=== PATIENT | male | born 1960 | race Two or more races ===

== ENCOUNTER 2017-11-06 22:12 | Inpatient (IN) | payer BC, OTHER, SELFPAY ==
[~2017-11-06] VITALS: Ht 160 cm; Wt 76.6 kg
[2017-11-06] MEDS ORDERED: ONDANSETRON 2MG/ML, 2ML IVPush ONE (23:00)
[2017-11-06] MEDS ORDERED: SODIUM CHLORIDE 0.9% 1,000ML IVBOLUS ONE (23:00)
[2017-11-06] MEDS ORDERED: SODIUM CHLORIDE FLUSH 10ML SYR IVF ONE (23:00)
[2017-11-06] MEDS ORDERED: ONDANSETRON 2MG/ML, 2ML ONE (23:32)
[2017-11-06] MEDS ORDERED: MORPHINE SULFATE 4 MG/ML, 1ML ONE (23:32)
[2017-11-06] MEDS: MORPHINE SULFATE 4 MG/ML, 1ML IVPush PRN (23:40)
[2017-11-06 23:45] LABS: ACETONE, SERUM Trace (10mg/dL) mg/dL (Negative)
[2017-11-06 23:46] LABS: ALANINE AMINOTRANSFERASE 394 U/L (12-78); ALBUMIN 3.8 g/dL (3.4-5.0); ANION GAP 10 mmol/L (5-15); CHLORIDE 99 mmol/L (98-107); CREATININE 1.23 mg/dL (0.7-1.3)
[2017-11-06 23:49] LABS: ALKALINE PHOSPHATASE 206 U/L (45-117); BILIRUBIN,TOTAL 3.3 mg/dL (0.2-1.0); TOTAL PROTEIN 7.6 g/dL (6.4-8.2)
[2017-11-06 23:52] LABS: MEAN CORPUSCULAR HEMOGLOBIN 29.1 pg (27.5-34.5); MEAN CORPUSCULAR HGB CONC 33.7 g/dL (33.2-36.2); MEAN CORPUSCULAR VOLUME 86.4 fL (81-97); MEAN PLATELET VOLUME 7.4 fL (7.4-10.4); PLATELET COUNT 300 x10^3/uL (130-400); RED BLOOD COUNT 5.78 x10^6/uL (4.38-5.82); RED CELL DISTRIBUTION WIDTH 13.1 % (9.4-14.8)
[2017-11-07 00:05] LABS: MICROSCOPIC NOT IND
[2017-11-07] MEDS: MORPHINE SULFATE 4 MG/ML, 1ML IVPush PRN (00:06)
[2017-11-07 00:07] LABS: CULTURE INDICATED? NO
[2017-11-07] MEDS ORDERED: MORPHINE SULFATE 4 MG/ML, 1ML ONE (00:09)
[2017-11-07 00:22] LABS: BASOPHILS # (AUTO) 0.01 x10^3/uL (0-0.1); BASOPHILS % (AUTO) 0 % (0-1); EOSINOPHILS # (AUTO) 0.04 x10^3/uL (0-0.4); EOSINOPHILS % (AUTO) 0 % (1-7); LYMPHOCYTES # (AUTO) 1.62 x10^3/uL (1-3.4); LYMPHOCYTES % (AUTO) 9 % (22-44); MD SCAN; MONOCYTES # (AUTO) 0.72 x10^3/uL (0.2-0.8); MONOCYTES % (AUTO) 4 % (2-9); NEUTROPHILS # (AUTO) 14.98 x10^3/uL (1.8-6.8); NEUTROPHILS % (AUTO) 86 % (42-75)
[2017-11-07] MEDS ORDERED: SODIUM CHLORIDE 0.9% 1,000 ML IV ONE (00:22)
[2017-11-07] MEDS ORDERED: HYDROmorphone 1 MG/ML, 1ML IVPush PRN (00:30)
[2017-11-07] MEDS ORDERED: ONDANSETRON 2MG/ML, 2ML IVPush PRN (00:30)
[2017-11-07] MEDS ORDERED: SODIUM CHLORIDE 0.9% 1,000ML IVBOLUS ONE (00:30)
[2017-11-07] MEDS ORDERED: SODIUM CHLORIDE FLUSH 10ML SYR IVF PRN (00:30)
[2017-11-07 01:43] VITALS: BP 169/94
[2017-11-07 02:33] VITALS: BP 175/92
[2017-11-07] MEDS: ONDANSETRON 2MG/ML, 2ML IVPush PRN (02:43)
[2017-11-07] MEDS: hydrALAzine 20 MG/ML, 1ML IVPush PRN (02:43)
[2017-11-07] MEDS: LACTATED RINGERS 1,000 ML IV SCH ×4 (02:44→17:17)
[2017-11-07 03:18] VITALS: BP 134/78
[2017-11-07 05:13] LABS: MEAN CORPUSCULAR HEMOGLOBIN 29.5 pg (27.5-34.5); MEAN CORPUSCULAR HGB CONC 34.2 g/dL (33.2-36.2); MEAN CORPUSCULAR VOLUME 86.5 fL (81-97); MEAN PLATELET VOLUME 7.3 fL (7.4-10.4); PLATELET COUNT 300 x10^3/uL (130-400); RED BLOOD COUNT 5.59 x10^6/uL (4.38-5.82); RED CELL DISTRIBUTION WIDTH 13.4 % (9.4-14.8)
[2017-11-07 05:24] LABS: CHLORIDE 105 mmol/L (98-107)
[2017-11-07 05:38] LABS: ALANINE AMINOTRANSFERASE 357 U/L (12-78); ALBUMIN 3.5 g/dL (3.4-5.0); ALKALINE PHOSPHATASE 190 U/L (45-117); ANION GAP 11 mmol/L (5-15); BILIRUBIN,TOTAL 3.9 mg/dL (0.2-1.0); CALCIUM 8.1 mg/dL (8.5-10.1); CREATININE 1.02 mg/dL (0.7-1.3); TOTAL PROTEIN 7.1 g/dL (6.4-8.2)
[2017-11-07] MEDS: HYDROmorphone 2 MG/ML, 1ML IVPush PRN ×5 (05:45→22:34)
[2017-11-07 06:07] LABS: BASOPHILS % (AUTO) 0 % (0-1); EOSINOPHILS % (AUTO) 0 % (1-7); LYMPHOCYTES # (AUTO) 0.48 x10^3/uL (1-3.4); LYMPHOCYTES % (AUTO) 3 % (22-44); MD SCAN; MONOCYTES # (AUTO) 0.34 x10^3/uL (0.2-0.8); MONOCYTES % (AUTO) 2 % (2-9); NEUTROPHILS # (AUTO) 14.51 x10^3/uL (1.8-6.8); NEUTROPHILS % (AUTO) 95 % (42-75)
[2017-11-07 07:51] VITALS: BP 132/86
[2017-11-07 15:12] VITALS: BP 148/89
[2017-11-07 19:49] VITALS: BP 145/87
[2017-11-08 02:00] VITALS: BP 133/77
[2017-11-08] MEDS: HYDROmorphone 2 MG/ML, 1ML IVPush PRN ×6 (02:05→21:05)
[2017-11-08] MEDS: LACTATED RINGERS 1,000 ML IV SCH ×3 (02:18→21:10)
[2017-11-08 08:30] VITALS: BP 142/78
[2017-11-08 14:34] VITALS: BP 143/88
[2017-11-08 21:11] VITALS: BP 162/98
[2017-11-09] MEDS: ONDANSETRON 2MG/ML, 2ML IVPush PRN (00:06)
[2017-11-09] MEDS: HYDROmorphone 2 MG/ML, 1ML IVPush PRN ×8 (00:06→21:53)
[2017-11-09 00:09] VITALS: BP 136/94
[2017-11-09 05:23] LABS: MEAN CORPUSCULAR HEMOGLOBIN 29.6 pg (27.5-34.5); MEAN CORPUSCULAR HGB CONC 34.1 g/dL (33.2-36.2); MEAN CORPUSCULAR VOLUME 86.8 fL (81-97); PLATELET COUNT 270 x10^3/uL (130-400); RED BLOOD COUNT 4.98 x10^6/uL (4.38-5.82); RED CELL DISTRIBUTION WIDTH 13.8 % (9.4-14.8)
[2017-11-09 05:33] LABS: CHLORIDE 106 mmol/L (98-107)
[2017-11-09 05:47] LABS: ALANINE AMINOTRANSFERASE 125 U/L (12-78); ALBUMIN 2.8 g/dL (3.4-5.0); ALKALINE PHOSPHATASE 111 U/L (45-117); ANION GAP 8 mmol/L (5-15); BILIRUBIN,TOTAL 1.8 mg/dL (0.2-1.0); CALCIUM 8.3 mg/dL (8.5-10.1); CREATININE 0.76 mg/dL (0.7-1.3); TOTAL PROTEIN 6.6 g/dL (6.4-8.2)
[2017-11-09 06:04] LABS: MD YES
[2017-11-09 06:05] LABS: BAND#(MANUAL) 1.34 x10^3/uL; BANDS%(MANUAL) 8 % (0-7); LYMPH#(MANUAL) 1.51 x10^3/uL (1-3.4); LYMPHS% (MANUAL) 9 % (22-44); MONOS#(MANUAL) 0.67 x10^3/uL (0.3-2.7); MONOS% (MANUAL) 4 % (2-9); SEG#(MANUAL) 13.27 x10^3/uL (1.8-6.8); SEGS% (MANUAL) 79 % (42-75)
[2017-11-09 06:06] LABS: <PLATELET ESTIMATE> ADEQUATE; <PLT MORPHOLOGY> NORMAL PLT MORPH; <RBC MORPHOLOGY> NORMAL
[2017-11-09 07:58] VITALS: BP 146/106
[2017-11-09] MEDS: LACTATED RINGERS 1,000 ML IV SCH ×2 (09:22→18:36)
[2017-11-09] MEDS: INSULIN LISPRO 100 UNITS/ML, PEN SQ-INSULIN SCH ×3 (12:26→22:09)
[2017-11-09 13:04] VITALS: BP 166/94
[2017-11-09 19:58] VITALS: BP 132/78
[2017-11-10] MEDS: HYDROmorphone 2 MG/ML, 1ML IVPush PRN ×8 (00:55→22:40)
[2017-11-10 03:26] VITALS: BP 138/77
[2017-11-10] MEDS: LACTATED RINGERS 1,000 ML IV SCH ×2 (04:03→13:30)
[2017-11-10 06:01] LABS: MEAN CORPUSCULAR HEMOGLOBIN 29.3 pg (27.5-34.5); MEAN CORPUSCULAR HGB CONC 33.7 g/dL (33.2-36.2); MEAN CORPUSCULAR VOLUME 86.8 fL (81-97); MEAN PLATELET VOLUME 7.1 fL (7.4-10.4); PLATELET COUNT 297 x10^3/uL (130-400); RED CELL DISTRIBUTION WIDTH 13.2 % (9.4-14.8)
[2017-11-10 06:02] LABS: ALANINE AMINOTRANSFERASE 87 U/L (12-78); ALBUMIN 2.7 g/dL (3.4-5.0); ANION GAP 5 mmol/L (5-15); CALCIUM 7.9 mg/dL (8.5-10.1); CHLORIDE 104 mmol/L (98-107)
[2017-11-10 06:05] LABS: ALKALINE PHOSPHATASE 101 U/L (45-117); BILIRUBIN,TOTAL 1.5 mg/dL (0.2-1.0); TOTAL PROTEIN 6.4 g/dL (6.4-8.2)
[2017-11-10 07:08] LABS: MD YES
[2017-11-10 07:17] LABS: EOS% (MANUAL) 1 % (1-7); LYMPH#(MANUAL) 0.93 x10^3/uL (1-3.4); LYMPHS% (MANUAL) 9 % (22-44); MONOS#(MANUAL) 0.52 x10^3/uL (0.3-2.7); MONOS% (MANUAL) 5 % (2-9); REACTIVE LYMPHS % (MANUAL) 1 % (0-0)
[2017-11-10 07:19] LABS: BAND#(MANUAL) 1.13 x10^3/uL; BANDS%(MANUAL) 11 % (0-7); SEG#(MANUAL) 7.52 x10^3/uL (1.8-6.8); SEGS% (MANUAL) 73 % (42-75)
[2017-11-10 07:21] LABS: <RBC MORPHOLOGY> NORMAL
[2017-11-10 07:22] LABS: <PLATELET ESTIMATE> ADEQUATE; <PLT MORPHOLOGY> NORMAL PLT MORPH
[2017-11-10] MEDS: INSULIN LISPRO 100 UNITS/ML, PEN SQ-INSULIN SCH ×4 (07:45→20:03)
[2017-11-10 08:00] VITALS: BP 156/79
[2017-11-10] MEDS: ONDANSETRON 2MG/ML, 2ML IVPush PRN ×4 (11:36→22:37)
[2017-11-10 13:59] VITALS: BP 143/78
[2017-11-10] MEDS ORDERED: BISACODYL 10 MG SUPP PR PRN (14:00)
[2017-11-10 19:03] VITALS: BP 165/81
[2017-11-10] MEDS ORDERED: HYDROmorphone 1 MG/ML, 1ML ONE ×2 (19:31→22:33)
[2017-11-11 00:52] VITALS: BP 147/78
[2017-11-11] MEDS ORDERED: HYDROmorphone 1 MG/ML, 1ML ONE ×4 (01:37→22:22)
[2017-11-11] MEDS: ONDANSETRON 2MG/ML, 2ML IVPush PRN ×2 (01:43→04:41)
[2017-11-11] MEDS: HYDROmorphone 2 MG/ML, 1ML IVPush PRN ×5 (01:43→22:28)
[2017-11-11] MEDS: LACTATED RINGERS 1,000 ML IV SCH ×3 (01:49→22:02)
[2017-11-11 06:06] LABS: ALBUMIN 2.3 g/dL (3.4-5.0); ANION GAP 6 mmol/L (5-15); CALCIUM 7.8 mg/dL (8.5-10.1); CHLORIDE 102 mmol/L (98-107)
[2017-11-11 06:09] LABS: ALANINE AMINOTRANSFERASE 58 U/L (12-78); ALKALINE PHOSPHATASE 84 U/L (45-117); BILIRUBIN,TOTAL 1.2 mg/dL (0.2-1.0); CREATININE 0.62 mg/dL (0.7-1.3); TOTAL PROTEIN 5.9 g/dL (6.4-8.2)
[2017-11-11 06:11] LABS: INTERNATIONAL NORMALIZED RATIO 1.1 (0.93-1.1); PROTHROMBIN TIME 11.4 Seconds (9.6-11.5)
[2017-11-11] MEDS: INSULIN LISPRO 100 UNITS/ML, PEN SQ-INSULIN SCH ×4 (07:00→22:01)
[2017-11-11 08:01] VITALS: BP 156/77
[2017-11-11] MEDS ORDERED: MIDAZOLAM 1 MG/ML, 2ML ONE (08:55)
[2017-11-11] MEDS ORDERED: FENTANYL PF 100 MCG/2ML ONE (08:55)
[2017-11-11] MEDS ORDERED: LIDOCAINE-MPF 2% ,5ML ONE (08:56)
[2017-11-11] MEDS ORDERED: PROPOFOL 10 MG/ML, 20ML ONE (08:56)
[2017-11-11] MEDS ORDERED: CEFAZOLIN 1,000 MG ONE (08:58)
[2017-11-11] MEDS ORDERED: METOPROLOL 1 MG/ML, 5ML ONE (08:58)
[2017-11-11] MEDS ORDERED: SUCCINYLCHOLINE 20 MG/ML, 10ML ONE (08:58)
[2017-11-11] MEDS ORDERED: DEXAMETHASONE 4 MG/ML, 1ML ONE ×2 (09:09)
[2017-11-11] MEDS ORDERED: KETOROLAC 30 MG/1 ML ONE (09:10)
[2017-11-11] MEDS ORDERED: ONDANSETRON 2MG/ML, 2ML ONE ×2 (09:10)
[2017-11-11] MEDS ORDERED: OMNIPAQUE 350 MG/ML, 50 ML BOTTLE ONE (09:30)
[2017-11-11] MEDS ORDERED: INDOMETHACIN 50 MG SUPP.RECT ONE (09:33)
[2017-11-11] MEDS ORDERED: hydrALAzine 20 MG/ML, 1ML IV PRN (10:00)
[2017-11-11] MEDS ORDERED: OXYcodone 5 MG/5 ML ORAL.SOL UDC PO PRN (10:00)
[2017-11-11] MEDS ORDERED: FENTANYL PF 100 MCG/2ML IV PRN (10:00)
[2017-11-11] MEDS ORDERED: ACETAMINOPHEN 325 MG TABLET PO PRN (10:00)
[2017-11-11] MEDS ORDERED: LABETALOL 5MG/ML, 20ML IV PRN (10:00)
[2017-11-11] MEDS ORDERED: INDOMETHACIN 50 MG SUPP.RECT PR ONE (10:00)
[2017-11-11] MEDS ORDERED: ONDANSETRON 2MG/ML, 2ML IVPush PRN (10:00)
[2017-11-11] MEDS ORDERED: morphine SULFATE 10 MG/ML, 1ML IV PRN (10:00)
[2017-11-11] MEDS ORDERED: LACTATED RINGERS 1,000 ML IVBOLUS ONE (10:00)
[2017-11-11] MEDS ORDERED: PROMETHAZINE 12.5 MG SUPP PR PRN (10:00)
[2017-11-11] MEDS ORDERED: MEPERIDINE/PF 25MG/0.5ML IVPush PRN (10:00)
[2017-11-11 14:18] VITALS: BP 150/82
[2017-11-11 20:27] VITALS: BP 133/85
[2017-11-12 00:36] VITALS: BP 134/84
[2017-11-12] MEDS ORDERED: HYDROmorphone 1 MG/ML, 1ML ONE ×7 (01:37→23:22)
[2017-11-12] MEDS: HYDROmorphone 2 MG/ML, 1ML IVPush PRN ×7 (01:42→23:25)
[2017-11-12 03:42] VITALS: BP 131/69
[2017-11-12] MEDS: LACTATED RINGERS 1,000 ML IV SCH ×2 (05:23→17:06)
[2017-11-12 05:39] LABS: BASOPHILS # (AUTO) 0.01 x10^3/uL (0-0.1); BASOPHILS % (AUTO) 0 % (0-1); EOSINOPHILS % (AUTO) 0 % (1-7); LYMPHOCYTES # (AUTO) 0.93 x10^3/uL (1-3.4); LYMPHOCYTES % (AUTO) 12 % (22-44); MD NO; MEAN CORPUSCULAR HEMOGLOBIN 29.8 pg (27.5-34.5); MEAN CORPUSCULAR HGB CONC 34.3 g/dL (33.2-36.2); MEAN CORPUSCULAR VOLUME 86.7 fL (81-97); MEAN PLATELET VOLUME 7.3 fL (7.4-10.4); MONOCYTES # (AUTO) 0.78 x10^3/uL (0.2-0.8); MONOCYTES % (AUTO) 10 % (2-9); NEUTROPHILS # (AUTO) 6.01 x10^3/uL (1.8-6.8); NEUTROPHILS % (AUTO) 78 % (42-75); PLATELET COUNT 272 x10^3/uL (130-400); RED BLOOD COUNT 4.27 x10^6/uL (4.38-5.82)
[2017-11-12 05:39] LABS: CHLORIDE 101 mmol/L (98-107)
[2017-11-12 06:05] LABS: ALANINE AMINOTRANSFERASE 43 U/L (12-78); ALBUMIN 2.1 g/dL (3.4-5.0); ALKALINE PHOSPHATASE 75 U/L (45-117); ANION GAP 7 mmol/L (5-15); BILIRUBIN,TOTAL 1.2 mg/dL (0.2-1.0); CALCIUM 7.7 mg/dL (8.5-10.1); CREATININE 0.72 mg/dL (0.7-1.3); TOTAL PROTEIN 5.4 g/dL (6.4-8.2)
[2017-11-12 07:55] VITALS: BP 109/72
[2017-11-12] MEDS: INSULIN LISPRO 100 UNITS/ML, PEN SQ-INSULIN SCH ×4 (08:20→20:32)
[2017-11-12] MEDS ORDERED: OXYcodone IR 5MG TABLET PO PRN (10:30)
[2017-11-12 12:49] VITALS: BP 134/74
[2017-11-12 19:15] VITALS: BP 156/79
[2017-11-13 00:39] VITALS: BP 178/88
[2017-11-13] MEDS: hydrALAzine 20 MG/ML, 1ML IVPush PRN (00:57)
[2017-11-13] MEDS: LACTATED RINGERS 1,000 ML IV SCH ×2 (00:57→13:30)
[2017-11-13] MEDS: ONDANSETRON 2MG/ML, 2ML IVPush PRN ×2 (01:04→23:10)
[2017-11-13 01:32] VITALS: BP 171/85
[2017-11-13] MEDS ORDERED: HYDROmorphone 1 MG/ML, 1ML ONE ×4 (02:04→15:43)
[2017-11-13] MEDS: HYDROmorphone 2 MG/ML, 1ML IVPush PRN ×4 (02:05→15:46)
[2017-11-13] MEDS: INSULIN LISPRO 100 UNITS/ML, PEN SQ-INSULIN SCH ×4 (08:23→21:23)
[2017-11-13 09:25] VITALS: BP 129/79
[2017-11-13] MEDS ORDERED: MIDAZOLAM 1 MG/ML, 2ML ONE (11:44)
[2017-11-13] MEDS ORDERED: FENTANYL PF 250 MCG/5ML ONE (11:44)
[2017-11-13] MEDS ORDERED: BUPIVACAINE/PF 0.5% ONE (11:58)
[2017-11-13] MEDS ORDERED: EPINEPHRINE 1 MG/ML, 1ML ONE (11:58)
[2017-11-13] MEDS ORDERED: ONDANSETRON 2MG/ML, 2ML ONE (12:12)
[2017-11-13] MEDS ORDERED: ROCURONIUM 10 MG/ML,10ML ONE (12:12)
[2017-11-13] MEDS ORDERED: NEOSTIGMINE 1 MG/ML, 10ML ONE (12:12)
[2017-11-13] MEDS ORDERED: PROPOFOL 10 MG/ML, 20ML ONE (12:12)
[2017-11-13] MEDS ORDERED: GLYCOPYRROLATE 0.2MG/1ML, 5ML ONE (12:12)
[2017-11-13] MEDS ORDERED: SUCCINYLCHOLINE 20 MG/ML, 10ML ONE (12:12)
[2017-11-13] MEDS ORDERED: CEFOTETAN 2 GM ONE (12:12)
[2017-11-13] MEDS ORDERED: BUPIVACAINE/PF-EPI 0.5% 1:200K INFIL ONE (12:33)
[2017-11-13] MEDS ORDERED: OXYcodone 5 MG/5 ML ORAL.SOL UDC PO PRN (13:00)
[2017-11-13] MEDS ORDERED: HYDROcodone/APAP 7.5-325MG/15ML UDC PO PRN (13:00)
[2017-11-13] MEDS ORDERED: PROMETHAZINE 25 MG/ML, 1ML IV PRN (13:00)
[2017-11-13] MEDS ORDERED: ACETAMINOPHEN 325 MG TABLET PO PRN (13:00)
[2017-11-13] MEDS ORDERED: MEPERIDINE/PF 25MG/0.5ML IVPush PRN (13:00)
[2017-11-13] MEDS ORDERED: morphine SULFATE 10 MG/ML, 1ML IV PRN (13:00)
[2017-11-13] MEDS ORDERED: DIAZEPAM 5 MG/ML, 2ML IVPush PRN (13:00)
[2017-11-13] MEDS ORDERED: ONDANSETRON 2MG/ML, 2ML IVPush PRN (13:00)
[2017-11-13] MEDS ORDERED: PROMETHAZINE 12.5 MG SUPP PR PRN (13:00)
[2017-11-13] MEDS ORDERED: LABETALOL 5MG/ML, 20ML IV PRN (13:00)
[2017-11-13] MEDS ORDERED: MIDAZOLAM 1 MG/ML, 2ML IV PRN (13:00)
[2017-11-13] MEDS ORDERED: EPHEDRINE 50 MG/ML, 1ML IVPush PRN (13:00)
[2017-11-13] MEDS ORDERED: ALBUTEROL SULFATE 2.5 MG/3 ML NPPB PRN (13:00)
[2017-11-13] MEDS ORDERED: METOPROLOL 1 MG/ML, 5ML IV PRN (13:00)
[2017-11-13] MEDS ORDERED: hydrALAzine 20 MG/ML, 1ML IV PRN (13:00)
[2017-11-13] MEDS ORDERED: ACETAMINOPHEN 650 MG/20.3 ML UDC ONE (13:22)
[2017-11-13] MEDS ORDERED: FENTANYL PF 100 MCG/2ML ONE (13:22)
[2017-11-13] MEDS ORDERED: OXYcodone 5 MG/5 ML ORAL.SOL UDC ONE (13:22)
[2017-11-13] MEDS: FENTANYL PF 100 MCG/2ML IV PRN ×2 (13:27→13:48)
[2017-11-13] MEDS ORDERED: morphine SULFATE 10 MG/ML, 1ML ONE (13:57)
[2017-11-13 14:40] VITALS: BP 141/90
[2017-11-13] MEDS: HYDROcodone/APAP 5/325 TABLET PO PRN ×2 (19:41→23:52)
[2017-11-13 20:58] VITALS: BP 162/108
[2017-11-14 00:07] VITALS: BP 132/80
[2017-11-14 03:52] VITALS: BP 110/82
[2017-11-14] MEDS: HYDROcodone/APAP 5/325 TABLET PO PRN ×4 (05:14→23:52)
[2017-11-14 06:38] VITALS: BP 144/91
[2017-11-14] MEDS: INSULIN LISPRO 100 UNITS/ML, PEN SQ-INSULIN SCH ×4 (09:12→22:50)
[2017-11-14 12:39] VITALS: BP 127/83
[2017-11-14 19:38] VITALS: BP 118/75
[2017-11-15 01:20] VITALS: BP 137/77
[2017-11-15 05:37] LABS: MEAN CORPUSCULAR HEMOGLOBIN 29.1 pg (27.5-34.5); MEAN CORPUSCULAR HGB CONC 33.8 g/dL (33.2-36.2); MEAN PLATELET VOLUME 7.1 fL (7.4-10.4); PLATELET COUNT 337 x10^3/uL (130-400); RED BLOOD COUNT 4.93 x10^6/uL (4.38-5.82); RED CELL DISTRIBUTION WIDTH 13.2 % (9.4-14.8)
[2017-11-15] MEDS: HYDROcodone/APAP 5/325 TABLET PO PRN ×2 (05:41→09:37)
[2017-11-15 05:44] LABS: ALBUMIN 2.1 g/dL (3.4-5.0); ANION GAP 8 mmol/L (5-15); CALCIUM 7.7 mg/dL (8.5-10.1); CHLORIDE 98 mmol/L (98-107)
[2017-11-15 05:47] LABS: ALANINE AMINOTRANSFERASE 50 U/L (12-78); ALKALINE PHOSPHATASE 95 U/L (45-117); BILIRUBIN,TOTAL 1.5 mg/dL (0.2-1.0); CREATININE 0.79 mg/dL (0.7-1.3)
[2017-11-15 06:02] LABS: MD YES
[2017-11-15 06:03] LABS: BAND#(MANUAL) 1.33 x10^3/uL; BANDS%(MANUAL) 10 % (0-7); LYMPH#(MANUAL) 2.39 x10^3/uL (1-3.4); LYMPHS% (MANUAL) 18 % (22-44); MONOS% (MANUAL) 9 % (2-9); SEG#(MANUAL) 8.38 x10^3/uL (1.8-6.8); SEGS% (MANUAL) 63 % (42-75)
[2017-11-15 06:04] LABS: <PLATELET ESTIMATE> ADEQUATE; <PLT MORPHOLOGY> NORMAL PLT MORPH; <RBC MORPHOLOGY> NORMAL
[2017-11-15 06:35] VITALS: BP 129/80
[2017-11-15] MEDS: INSULIN LISPRO 100 UNITS/ML, PEN SQ-INSULIN SCH (08:29)
[2017-11-15] MEDS ORDERED: KETO10TA PO (09:31)
[2017-11-15] MEDS ORDERED: ONDA4TAB13 SL (09:31)
[2017-11-15] MEDS ORDERED: POLY17PO5 PO (09:32)
== END 2017-11-15 11:23 | disposition home or self-care (01) | DRG 417 ==
LOC: ED 23:10 → EDIP 11-07 00:41 → 4WST 11-07 01:43 → 4EST 11-07 10:43 → 4NOR 11-11 11:21
PROVIDERS: ADMIT Hospitalist; ATTEND Hospitalist
PROC: 0FC98ZZ Extirpation of Matter from Common Bile Duct, Via Natural or Artificial Opening Endoscopic (ICD-10-PCS; 2017-11-11)
PROC: 0F798ZZ Dilation of Common Bile Duct, Via Natural or Artificial Opening Endoscopic (ICD-10-PCS; 2017-11-11)
PROC: 0HQ7XZZ Repair Abdomen Skin, External Approach (ICD-10-PCS; 2017-11-13)
PROC: 0FT44ZZ Resection of Gallbladder, Percutaneous Endoscopic Approach (ICD-10-PCS; principal; 2017-11-13 11:45)
DX: K80.21 Calculus of gallbladder without cholecystitis with obstruction (principal); K85.10 Biliary acute pancreatitis without necrosis or infection; K80.51 Calculus of bile duct without cholangitis or cholecystitis with obstruction; E11.65 Type 2 diabetes mellitus with hyperglycemia; E78.5 Hyperlipidemia, unspecified; E86.9 Volume depletion, unspecified; R14.0 Abdominal distension (gaseous); R74.8 Abnormal levels of other serum enzymes; R79.89 Other specified abnormal findings of blood chemistry; Z79.4 Long term (current) use of insulin; Z80.0 Family history of malignant neoplasm of digestive organs; Z83.3 Family history of diabetes mellitus
CPT/HCPCS: 36415; 74181; 74328; 76700; 80053; 81003; 82010; 82800; 82962; 83690; 83735; 84100; 85025; 85610; 88304; 96361; 96374; 96375; J0171; J0690; J1100; J1170; J1885; J2250; J2405; J2704; J2710; J3010; J3490; Q9967; J0330; J0360; J1815; J2270; J7030; J7120; S0074

== ENCOUNTER 2018-02-01 20:07 | Inpatient (IN) | payer OTHER ==
[~2018-02-01] VITALS: Ht 162.6 cm; Wt 61.3 kg
[~2018-02-01 20:07] MED LIST: KETO10TA PO; ONDA4TAB13 SL; POLY17PO5 PO
[2018-02-01] MEDS ORDERED: SODIUM CHLORIDE FLUSH 10ML SYR IVF ONE (21:00)
[2018-02-01] MEDS ORDERED: MORPHINE SULFATE 4 MG/ML, 1ML IVPush PRN (21:00)
[2018-02-01] MEDS ORDERED: ONDANSETRON ODT 4 MG PO ONE (21:00)
[2018-02-01] MEDS ORDERED: ONDANSETRON ODT 4 MG ONE (21:07)
[2018-02-01] MEDS ORDERED: MORPHINE SULFATE 4 MG/ML, 1ML ONE (21:07)
[2018-02-01 21:12] LABS: BASOPHILS # (AUTO) 0.02 x10^3/uL (0-0.1); BASOPHILS % (AUTO) 0 % (0-1); EOSINOPHILS # (AUTO) 0.06 x10^3/uL (0-0.4); EOSINOPHILS % (AUTO) 1 % (1-7); LYMPHOCYTES # (AUTO) 1.56 x10^3/uL (1-3.4); LYMPHOCYTES % (AUTO) 24 % (22-44); MD NO; MEAN CORPUSCULAR HEMOGLOBIN 27.5 pg (27.5-34.5); MEAN CORPUSCULAR HGB CONC 33.6 g/dL (33.2-36.2); MEAN PLATELET VOLUME 6.2 fL (7.4-10.4); MONOCYTES # (AUTO) 0.84 x10^3/uL (0.2-0.8); MONOCYTES % (AUTO) 13 % (2-9); NEUTROPHILS # (AUTO) 3.93 x10^3/uL (1.8-6.8); NEUTROPHILS % (AUTO) 61 % (42-75); PLATELET COUNT 368 x10^3/uL (130-400); RED BLOOD COUNT 4.39 x10^6/uL (4.38-5.82)
[2018-02-01 21:18] LABS: ALANINE AMINOTRANSFERASE 17 U/L (12-78); ALBUMIN 2.4 g/dL (3.4-5.0); ANION GAP 9 mmol/L (5-15); CALCIUM 8.6 mg/dL (8.5-10.1); CHLORIDE 101 mmol/L (98-107); CREATININE 0.95 mg/dL (0.7-1.3)
[2018-02-01 21:20] LABS: ALKALINE PHOSPHATASE 61 U/L (45-117); BILIRUBIN,TOTAL 0.7 mg/dL (0.2-1.0); TOTAL PROTEIN 7.7 g/dL (6.4-8.2)
[2018-02-01 21:51] LABS: MICROSCOPIC NOT IND
[2018-02-01 21:54] LABS: CULTURE INDICATED? NO
[2018-02-01] MEDS ORDERED: OMNIPAQUE 350 MG/ML, 100ML BOTTLE ONE (22:23)
[2018-02-01] MEDS ORDERED: METF500T4 PO (23:19)
[2018-02-01] MEDS ORDERED: MEROPENEM 1 GM in SODIUM CHLORIDE 0.9% 100 ML IV ONE (23:30)
[2018-02-01] MEDS: MEROPENEM 1 GM in SODIUM CHLORIDE 0.9% 100 ML IV SCH (23:56)
[2018-02-02] MEDS ORDERED: GLUCAGON 1 MG IM PRN
[2018-02-02] MEDS ORDERED: DEXTROSE 50%, 50ML SYRINGE IVPush PRN
[2018-02-02] MEDS ORDERED: ONDANSETRON 2MG/ML, 2ML IVPush PRN
[2018-02-02] MEDS ORDERED: hydrALAzine 20 MG/ML, 1ML IVPush PRN
[2018-02-02] MEDS ORDERED: morphine SULFATE 10 MG/ML, 1ML IVPush PRN
[2018-02-02] MEDS ORDERED: DEXTROSE 4 GM TAB.CHEW PO PRN
[2018-02-02 00:12] LABS: HCT (SEDRATE) 35.4 % (39.2-51.8)
[2018-02-02 00:31] LABS: C-REACTIVE PROTEIN, QUANT 5.1 mg/dL (0.02-0.49)
[2018-02-02 00:37] VITALS: BP 92/65
[2018-02-02 00:45] VITALS: BP 92/65
[2018-02-02] MEDS: D5%-0.45% NACL 1,000 ML IV SCH ×5 (00:56→22:02)
[2018-02-02] MEDS ORDERED: ATOR40TA PO (01:11)
[2018-02-02] MEDS ORDERED: GLIP-142 PO (01:11)
[2018-02-02] MEDS ORDERED: LISI-424 PO (01:11)
[2018-02-02 05:02] LABS: BASOPHILS # (AUTO) 0.04 x10^3/uL (0-0.1); BASOPHILS % (AUTO) 1 % (0-1); EOSINOPHILS # (AUTO) 0.09 x10^3/uL (0-0.4); EOSINOPHILS % (AUTO) 1 % (1-7); LYMPHOCYTES # (AUTO) 1.35 x10^3/uL (1-3.4); LYMPHOCYTES % (AUTO) 20 % (22-44); MD NO; MEAN CORPUSCULAR HEMOGLOBIN 27.6 pg (27.5-34.5); MEAN CORPUSCULAR HGB CONC 33.1 g/dL (33.2-36.2); MEAN CORPUSCULAR VOLUME 83.5 fL (81-97); MEAN PLATELET VOLUME 6.1 fL (7.4-10.4); MONOCYTES # (AUTO) 0.93 x10^3/uL (0.2-0.8); MONOCYTES % (AUTO) 14 % (2-9); NEUTROPHILS # (AUTO) 4.24 x10^3/uL (1.8-6.8); NEUTROPHILS % (AUTO) 64 % (42-75); PLATELET COUNT 306 x10^3/uL (130-400); RED BLOOD COUNT 4.13 x10^6/uL (4.38-5.82); RED CELL DISTRIBUTION WIDTH 14.1 % (9.4-14.8)
[2018-02-02 05:14] LABS: CHLORIDE 102 mmol/L (98-107)
[2018-02-02 05:22] LABS: ALANINE AMINOTRANSFERASE 15 U/L (12-78); ALKALINE PHOSPHATASE 61 U/L (45-117); ANION GAP 6 mmol/L (5-15); BILIRUBIN,TOTAL 0.6 mg/dL (0.2-1.0); CALCIUM 7.7 mg/dL (8.5-10.1); CREATININE 0.89 mg/dL (0.7-1.3); TOTAL PROTEIN 6.7 g/dL (6.4-8.2)
[2018-02-02] MEDS: INSULIN LISPRO 100 UNITS/ML, PEN SQ-INSULIN SCH ×4 (07:00→20:27)
[2018-02-02 07:48] VITALS: BP 98/70
[2018-02-02] MEDS: MEROPENEM 1 GM in SODIUM CHLORIDE 0.9% 100 ML IV SCH ×2 (08:08→17:12)
[2018-02-02] MEDS: SODIUM CHLORIDE FLUSH 10ML SYR IVF SCH ×2 (08:08→20:27)
[2018-02-02 13:19] VITALS: BP 96/61
[2018-02-02 19:42] VITALS: BP 96/62
[2018-02-03] MEDS: MEROPENEM 1 GM in SODIUM CHLORIDE 0.9% 100 ML IV SCH ×3 (00:17→17:09)
[2018-02-03 00:27] VITALS: BP 99/65
[2018-02-03] MEDS: D5%-0.45% NACL 1,000 ML IV SCH ×4 (02:58→21:53)
[2018-02-03 05:40] LABS: ALANINE AMINOTRANSFERASE 14 U/L (12-78); ALBUMIN 1.8 g/dL (3.4-5.0); ANION GAP 6 mmol/L (5-15); CALCIUM 7.9 mg/dL (8.5-10.1); CHLORIDE 107 mmol/L (98-107); CREATININE 0.89 mg/dL (0.7-1.3)
[2018-02-03 05:42] LABS: ALKALINE PHOSPHATASE 47 U/L (45-117); BILIRUBIN,TOTAL 0.7 mg/dL (0.2-1.0); TOTAL PROTEIN 6.1 g/dL (6.4-8.2)
[2018-02-03 07:24] VITALS: BP 96/54
[2018-02-03] MEDS: SODIUM CHLORIDE FLUSH 10ML SYR IVF SCH ×2 (08:07→21:54)
[2018-02-03] MEDS: INSULIN LISPRO 100 UNITS/ML, PEN SQ-INSULIN SCH ×4 (08:18→21:54)
[2018-02-03 14:29] VITALS: BP 101/66
[2018-02-03] MEDS ORDERED: LIDOCAINE GEL 2%, 5ML ONE (16:22)
[2018-02-03 21:11] VITALS: BP 114/62
[2018-02-04] MEDS: MEROPENEM 1 GM in SODIUM CHLORIDE 0.9% 100 ML IV SCH ×3 (00:43→17:10)
[2018-02-04 01:29] VITALS: BP 101/63
[2018-02-04] MEDS: D5%-0.45% NACL 1,000 ML IV SCH ×4 (03:02→23:01)
[2018-02-04 07:39] VITALS: BP 101/67
[2018-02-04] MEDS: INSULIN LISPRO 100 UNITS/ML, PEN SQ-INSULIN SCH ×4 (08:52→21:57)
[2018-02-04] MEDS: SODIUM CHLORIDE FLUSH 10ML SYR IVF SCH ×2 (08:53→21:00)
[2018-02-04 09:37] LABS: TRIGLYCERIDES 87 mg/dL (50-200); VLDL CHOLESTEROL 17 mg/dL (0-25)
[2018-02-04 09:39] LABS: HDL CHOLESTEROL (DIRECT) 17 mg/dL (40-60)
[2018-02-04 09:41] LABS: CHOL/HDL RATIO 2.9; CHOLESTEROL, TOTAL < 50 mg/dL (140-239); LDL CHOLESTEROL,CALCULATED 16 mg/dL (54-169); LDL/HDL RATIO 0.9 (0.5-3.0)
[2018-02-04 09:43] LABS: HDL CHOL % < 1 % (26-37)
[2018-02-04 14:00] VITALS: BP 101/64
[2018-02-04 19:25] VITALS: BP 114/73
[2018-02-05 00:40] VITALS: BP 123/73
[2018-02-05] MEDS: MEROPENEM 1 GM in SODIUM CHLORIDE 0.9% 100 ML IV SCH ×3 (01:10→17:12)
[2018-02-05] MEDS: D5%-0.45% NACL 1,000 ML IV SCH ×3 (06:20→21:41)
[2018-02-05 07:26] VITALS: BP 113/75
[2018-02-05] MEDS ORDERED: ENOXAPARIN 40 MG/0.4 ML SQ SCH (08:30)
[2018-02-05] MEDS: SODIUM CHLORIDE FLUSH 10ML SYR IVF SCH ×2 (09:00→21:00)
[2018-02-05] MEDS: INSULIN LISPRO 100 UNITS/ML, PEN SQ-INSULIN SCH ×4 (09:03→21:40)
[2018-02-05 13:53] VITALS: BP 111/73
[2018-02-05 19:13] VITALS: BP 124/76
[2018-02-06 01:19] VITALS: BP 113/71
[2018-02-06] MEDS: MEROPENEM 1 GM in SODIUM CHLORIDE 0.9% 100 ML IV SCH ×3 (01:30→16:58)
[2018-02-06] MEDS: D5%-0.45% NACL 1,000 ML IV SCH ×2 (01:45→07:15)
[2018-02-06 07:21] VITALS: BP 113/72
[2018-02-06] MEDS: INSULIN LISPRO 100 UNITS/ML, PEN SQ-INSULIN SCH ×4 (08:18→21:38)
[2018-02-06] MEDS: SODIUM CHLORIDE FLUSH 10ML SYR IVF SCH ×2 (09:46→21:00)
[2018-02-06 13:19] VITALS: BP 98/65
[2018-02-06 20:29] VITALS: BP 118/74
[2018-02-07] MEDS: MEROPENEM 1 GM in SODIUM CHLORIDE 0.9% 100 ML IV SCH ×2 (01:07→10:25)
[2018-02-07 01:44] VITALS: BP 103/65
[2018-02-07] MEDS: INSULIN LISPRO 100 UNITS/ML, PEN SQ-INSULIN SCH ×4 (07:58→20:34)
[2018-02-07 08:05] VITALS: BP 109/72
[2018-02-07] MEDS: SODIUM CHLORIDE FLUSH 10ML SYR IVF SCH ×2 (09:00→20:28)
[2018-02-07 13:29] VITALS: BP 106/71
[2018-02-07] MEDS: CEFDINIR 300 MG CAPSULE PO SCH (16:57)
[2018-02-07 18:38] VITALS: BP 106/67
[2018-02-08 01:11] VITALS: BP 98/60
[2018-02-08] MEDS: CEFDINIR 300 MG CAPSULE PO SCH (04:10)
[2018-02-08] MEDS: INSULIN LISPRO 100 UNITS/ML, PEN SQ-INSULIN SCH (07:00)
[2018-02-08 07:32] VITALS: BP 99/65
[2018-02-08] MEDS ORDERED: CEFD300C37 PO (07:57)
[2018-02-08] MEDS ORDERED: POLYETHYLENE GLYCOL 17 GM PACKET NG ONE (08:30)
[2018-02-08] MEDS: SODIUM CHLORIDE FLUSH 10ML SYR IVF SCH (09:00)
[2018-02-08] MEDS ORDERED: DOCUSATE 100 MG CAPSULE PO SCH (09:00)
== END 2018-02-08 10:30 | disposition home or self-care (01) | DRG 439 ==
LOC: ED 22:13 → EDIP 23:16 → 3NE 02-02 00:10 → DCLOUNGE 02-08 10:11
PROVIDERS: ADMIT Hospitalist; ATTEND Hospitalist
DX: K85.90 Acute pancreatitis without necrosis or infection, unspecified (principal); E44.0 Moderate protein-calorie malnutrition; E11.649 Type 2 diabetes mellitus with hypoglycemia without coma; E87.1 Hypo-osmolality and hyponatremia; M54.5 Low back pain; E78.5 Hyperlipidemia, unspecified; R79.89 Other specified abnormal findings of blood chemistry; D64.9 Anemia, unspecified; Z68.23 Body mass index [BMI] 23.0-23.9, adult; Z79.84 Long term (current) use of oral hypoglycemic drugs; Z83.3 Family history of diabetes mellitus; Z90.49 Acquired absence of other specified parts of digestive tract
CPT/HCPCS: 36415; 72072; 74018; 74177; 74181; 76000; 80053; 80061; 81003; 82962; 83690; 84478; 85025; 85651; 86140; 87040; 93005; 96374; J2185; Q0162; Q9967; J1815

== ENCOUNTER 2018-05-16 09:20 | Inpatient (IN) | payer OTHER ==
[~2018-05-16] VITALS: Ht 160 cm; Wt 62.1 kg
[~2018-05-16 09:20] MED LIST changes: +ATOR40TA PO; +CEFD300C37 PO; +GLIP-142 PO; +LISI-424 PO; +METF500T17 PO
[2018-05-16] MEDS ORDERED: SODIUM CHLORIDE 0.9% 1,000ML IVBOLUS ONE (10:00)
[2018-05-16] MEDS ORDERED: SODIUM CHLORIDE FLUSH 10ML SYR IVF ONE (10:00)
[2018-05-16] MEDS ORDERED: IBUPROFEN 200 MG TABLET PO ONE (10:00)
[2018-05-16 10:28] LABS: MEAN CORPUSCULAR HEMOGLOBIN 28.5 pg (27.5-34.5); MEAN CORPUSCULAR HGB CONC 33.8 g/dL (33.2-36.2); MEAN CORPUSCULAR VOLUME 84.5 fL (81-97); MEAN PLATELET VOLUME 6.6 fL (7.4-10.4); PLATELET COUNT 236 x10^3/uL (130-400); RED BLOOD COUNT 5.21 x10^6/uL (4.38-5.82); RED CELL DISTRIBUTION WIDTH 14.1 % (9.4-14.8)
[2018-05-16] MEDS ORDERED: IBUPROFEN 200 MG TABLET ONE (10:31)
[2018-05-16 10:35] LABS: ANION GAP 7 mmol/L (5-15); CALCIUM 8.3 mg/dL (8.5-10.1); CHLORIDE 102 mmol/L (98-107)
[2018-05-16 10:42] LABS: MD YES
[2018-05-16 10:43] LABS: BAND#(MANUAL) 1.98 x10^3/uL; BANDS%(MANUAL) 13 % (0-7); LYMPH#(MANUAL) 1.37 x10^3/uL (1-3.4); LYMPHS% (MANUAL) 9 % (22-44); MONOS#(MANUAL) 0.46 x10^3/uL (0.3-2.7); MONOS% (MANUAL) 3 % (2-9); SEGS% (MANUAL) 75 % (42-75)
[2018-05-16 10:44] LABS: <RBC MORPHOLOGY> NORMAL
[2018-05-16 10:45] LABS: <PLATELET ESTIMATE> ADEQUATE; <PLT MORPHOLOGY> NORMAL PLT MORPH; TOXIC GRAN 1+
[2018-05-16] MEDS ORDERED: CEFTRIAXONE 1,000 MG in SODIUM CHLORIDE 0.9% 50 ML IVPB ONE (11:00)
[2018-05-16] MEDS ORDERED: CEFTRIAXONE PMX 1GM/50ML 50 ML ONE (11:19)
[2018-05-16 11:29] LABS: MICROSCOPIC INDICATED
[2018-05-16 12:06] LABS: CULTURE INDICATED? NO
[2018-05-16] MEDS ORDERED: OMNIPAQUE 350 MG/ML, 100ML BOTTLE ONE (13:01)
[2018-05-16 13:28] LABS: BILIRUBIN, DIRECT 0.2 mg/dL (0.1-0.2)
[2018-05-16 13:30] LABS: BILIRUBIN,INDIRECT 0.3 mg/dL (0.0-2.0); BILIRUBIN,TOTAL 0.5 mg/dL (0.2-1.0); TOTAL PROTEIN 7.8 g/dL (6.4-8.2)
[2018-05-16] MEDS ORDERED: METRONIDAZOLE PMX 500MG/100ML 100 ML IV ONE (13:30)
[2018-05-16] MEDS ORDERED: METRONIDAZOLE PMX 500MG/100ML 100 ML ONE (13:51)
[2018-05-16] MEDS ORDERED: SODIUM CHLORIDE FLUSH 10ML SYR IVF PRN (15:00)
[2018-05-16] MEDS ORDERED: POLYETHYLENE GLYCOL 17 GM PACKET PO PRN (16:00)
[2018-05-16] MEDS ORDERED: DEXTROSE 4 GM TAB.CHEW PO PRN (16:00)
[2018-05-16] MEDS ORDERED: DOCUSATE 100 MG CAPSULE PO PRN (16:00)
[2018-05-16] MEDS ORDERED: BISACODYL 10 MG SUPP PR PRN (16:00)
[2018-05-16] MEDS ORDERED: GLUCAGON 1 MG IM PRN (16:00)
[2018-05-16] MEDS ORDERED: ACETAMINOPHEN 325 MG TABLET PO PRN (16:00)
[2018-05-16] MEDS ORDERED: DEXTROSE 50%, 50ML SYRINGE IVPush PRN (16:00)
[2018-05-16] MEDS ORDERED: hydrALAzine 20 MG/ML, 1ML IVPush PRN (16:00)
[2018-05-16] MEDS: INSULIN LISPRO 100 UNITS/ML, PEN SQ-INSULIN SCH ×2 (16:00→20:18)
[2018-05-16 16:15] VITALS: BP 101/67
[2018-05-16 16:18] LABS: INTERNATIONAL NORMALIZED RATIO 1.05 (0.93-1.1); PROTHROMBIN TIME 10.8 Seconds (9.6-11.5)
[2018-05-16 16:33] LABS: HEMOGLOBIN A1C 7.3 % (4.2-6.3)
[2018-05-16] MEDS: morphine SULFATE 10 MG/ML, 1ML IVPush PRN (16:57)
[2018-05-16] MEDS: D5%-0.45% NACL 1,000 ML IV SCH (16:58)
[2018-05-16] MEDS ORDERED: CEFTRIAXONE 2 GM in SODIUM CHLORIDE 0.9% 50 ML IV SCH (17:00)
[2018-05-16 19:03] VITALS: BP 107/68
[2018-05-16] MEDS: METRONIDAZOLE PMX 500MG/100ML 100 ML IV SCH (20:10)
[2018-05-16] MEDS: PANTOPRAZOLE 40 MG IV IVPush SCH (20:40)
[2018-05-16] MEDS: SODIUM CHLORIDE FLUSH 10ML SYR IVF SCH (20:41)
[2018-05-17 01:32] VITALS: BP 107/67
[2018-05-17] MEDS: D5%-0.45% NACL 1,000 ML IV SCH ×2 (02:08→14:45)
[2018-05-17] MEDS: METRONIDAZOLE PMX 500MG/100ML 100 ML IV SCH ×4 (02:09→20:22)
[2018-05-17] MEDS: morphine SULFATE 10 MG/ML, 1ML IVPush PRN (02:18)
[2018-05-17 05:33] LABS: MEAN CORPUSCULAR HEMOGLOBIN 28.6 pg (27.5-34.5); MEAN CORPUSCULAR HGB CONC 34.3 g/dL (33.2-36.2); MEAN CORPUSCULAR VOLUME 83.4 fL (81-97); MEAN PLATELET VOLUME 6.5 fL (7.4-10.4); PLATELET COUNT 193 x10^3/uL (130-400); RED BLOOD COUNT 4.69 x10^6/uL (4.38-5.82); RED CELL DISTRIBUTION WIDTH 14.2 % (9.4-14.8)
[2018-05-17 05:50] LABS: ALBUMIN 2.4 g/dL (3.4-5.0); ANION GAP 6 mmol/L (5-15); CHLORIDE 103 mmol/L (98-107)
[2018-05-17 05:54] LABS: ALANINE AMINOTRANSFERASE 25 U/L (12-78); ALKALINE PHOSPHATASE 65 U/L (45-117); BILIRUBIN,TOTAL 0.5 mg/dL (0.2-1.0); CALCIUM 7.6 mg/dL (8.5-10.1); CREATININE 0.91 mg/dL (0.7-1.3); TOTAL PROTEIN 6.4 g/dL (6.4-8.2)
[2018-05-17 06:06] LABS: MD YES
[2018-05-17 06:10] LABS: BAND#(MANUAL) 0.89 x10^3/uL; BANDS%(MANUAL) 9 % (0-7); LYMPH#(MANUAL) 1.98 x10^3/uL (1-3.4); LYMPHS% (MANUAL) 20 % (22-44); MONOS% (MANUAL) 5 % (2-9); SEG#(MANUAL) 6.53 x10^3/uL (1.8-6.8); SEGS% (MANUAL) 66 % (42-75)
[2018-05-17 06:11] LABS: <PLATELET ESTIMATE> ADEQUATE; <PLT MORPHOLOGY> NORMAL PLT MORPH; <RBC MORPHOLOGY> NORMAL
[2018-05-17] MEDS ORDERED: VANCOMYCIN PER PHARMACY MC PRN (07:00)
[2018-05-17] MEDS: INSULIN LISPRO 100 UNITS/ML, PEN SQ-INSULIN SCH ×4 (07:00→20:15)
[2018-05-17] MEDS ORDERED: PHARMACY MAY ADJ FOR RENAL FX MC PRN (07:00)
[2018-05-17] MEDS: SODIUM CHLORIDE FLUSH 10ML SYR IVF SCH ×2 (07:38→20:19)
[2018-05-17 07:52] VITALS: BP 93/65
[2018-05-17] MEDS ORDERED: PHARMACOKINETIC MONITORING MC PRN (08:00)
[2018-05-17] MEDS: PANTOPRAZOLE 40 MG IV IVPush SCH ×2 (09:05→20:19)
[2018-05-17] MEDS ORDERED: GADOBUTROL 7.5 MMOL/7.5 ML PFS ONE (09:33)
[2018-05-17] MEDS: VANCOMYCIN 1,200 MG in SODIUM CHLORIDE 0.9% 250 ML IV SCH ×2 (10:05→21:52)
[2018-05-17 13:36] VITALS: BP 94/61
[2018-05-17 20:17] VITALS: BP 100/66
[2018-05-18 01:51] VITALS: BP 95/62
[2018-05-18] MEDS: D5%-0.45% NACL 1,000 ML IV SCH ×3 (02:15→23:46)
[2018-05-18] MEDS: METRONIDAZOLE PMX 500MG/100ML 100 ML IV SCH ×3 (02:15→13:38)
[2018-05-18 05:59] LABS: ALBUMIN 2.3 g/dL (3.4-5.0); ANION GAP 8 mmol/L (5-15); CALCIUM 7.8 mg/dL (8.5-10.1); CHLORIDE 106 mmol/L (98-107)
[2018-05-18 06:01] LABS: CREATININE 0.98 mg/dL (0.7-1.3)
[2018-05-18] MEDS: morphine SULFATE 10 MG/ML, 1ML IVPush PRN (06:44)
[2018-05-18 07:58] VITALS: BP 89/65
[2018-05-18] MEDS ORDERED: SODIUM CHLORIDE 0.9%, 500ML IVBOLUS ONE (08:30)
[2018-05-18] MEDS: SODIUM CHLORIDE FLUSH 10ML SYR IVF SCH ×2 (08:54→20:41)
[2018-05-18] MEDS: INSULIN LISPRO 100 UNITS/ML, PEN SQ-INSULIN SCH ×4 (08:57→20:42)
[2018-05-18] MEDS: PANTOPRAZOLE 40 MG IV IVPush SCH ×2 (09:05→20:41)
[2018-05-18 09:43] VITALS: BP 98/65
[2018-05-18] MEDS: VANCOMYCIN 1,200 MG in SODIUM CHLORIDE 0.9% 250 ML IV SCH (10:23)
[2018-05-18 10:26] LABS: MICROSCOPIC NOT IND
[2018-05-18] MEDS ORDERED: AMPICILLIN/SULBACTAM 3 GM in SODIUM CHLORIDE 0.9% 100 ML IV SCH (11:00)
[2018-05-18 14:56] VITALS: BP 111/69
[2018-05-18] MEDS: PIPERACILLIN/TAZO/PMX 4.5GM 100 ML IV SCH ×2 (16:10→21:53)
[2018-05-18 20:09] VITALS: BP 96/61
[2018-05-19 02:19] VITALS: BP 98/60
[2018-05-19] MEDS: PIPERACILLIN/TAZO/PMX 4.5GM 100 ML IV SCH (04:06)
[2018-05-19 05:13] LABS: BASOPHILS # (AUTO) 0.03 x10^3/uL (0-0.1); BASOPHILS % (AUTO) 1 % (0-1); EOSINOPHILS % (AUTO) 2 % (1-7); LYMPHOCYTES # (AUTO) 1.94 x10^3/uL (1-3.4); LYMPHOCYTES % (AUTO) 40 % (22-44); MD NO; MEAN CORPUSCULAR HEMOGLOBIN 28.1 pg (27.5-34.5); MEAN CORPUSCULAR HGB CONC 33.7 g/dL (33.2-36.2); MEAN CORPUSCULAR VOLUME 83.6 fL (81-97); MEAN PLATELET VOLUME 6.4 fL (7.4-10.4); MONOCYTES # (AUTO) 0.55 x10^3/uL (0.2-0.8); MONOCYTES % (AUTO) 11 % (2-9); NEUTROPHILS % (AUTO) 47 % (42-75); PLATELET COUNT 196 x10^3/uL (130-400); RED BLOOD COUNT 4.56 x10^6/uL (4.38-5.82); RED CELL DISTRIBUTION WIDTH 13.9 % (9.4-14.8)
[2018-05-19 05:14] LABS: ALBUMIN 2.3 g/dL (3.4-5.0); ANION GAP 7 mmol/L (5-15); CALCIUM 7.7 mg/dL (8.5-10.1); CHLORIDE 109 mmol/L (98-107)
[2018-05-19 07:37] VITALS: BP 106/69
[2018-05-19] MEDS: D5%-0.45% NACL 1,000 ML IV SCH ×2 (07:59→23:20)
[2018-05-19] MEDS: SODIUM CHLORIDE FLUSH 10ML SYR IVF SCH ×2 (07:59→20:23)
[2018-05-19] MEDS: INSULIN LISPRO 100 UNITS/ML, PEN SQ-INSULIN SCH ×4 (08:00→20:24)
[2018-05-19] MEDS: PANTOPRAZOLE 40 MG IV IVPush SCH ×2 (10:00→20:24)
[2018-05-19] MEDS: AMPICILLIN/SULBACTAM 3 GM in SODIUM CHLORIDE 0.9% 100 ML IV SCH ×3 (11:24→23:19)
[2018-05-19 12:52] VITALS: BP 99/65
[2018-05-19 19:47] VITALS: BP 109/71
[2018-05-19] MEDS: ATORVASTATIN 40 MG TABLET PO SCH (20:23)
[2018-05-20 02:33] VITALS: BP 111/71
[2018-05-20 06:16] LABS: ALBUMIN 2.4 g/dL (3.4-5.0); ANION GAP 2 mmol/L (5-15); CALCIUM 7.8 mg/dL (8.5-10.1); CHLORIDE 110 mmol/L (98-107)
[2018-05-20] MEDS: AMPICILLIN/SULBACTAM 3 GM in SODIUM CHLORIDE 0.9% 100 ML IV SCH ×2 (06:21→11:25)
[2018-05-20 06:23] LABS: ALANINE AMINOTRANSFERASE 23 U/L (12-78); ALKALINE PHOSPHATASE 57 U/L (45-117); BILIRUBIN,TOTAL 0.7 mg/dL (0.2-1.0); CREATININE 0.89 mg/dL (0.7-1.3); TOTAL PROTEIN 6.8 g/dL (6.4-8.2)
[2018-05-20] MEDS: INSULIN LISPRO 100 UNITS/ML, PEN SQ-INSULIN SCH ×4 (08:14→20:55)
[2018-05-20 08:17] VITALS: BP 100/70
[2018-05-20] MEDS: LISINOPRIL 5 MG TABLET PO SCH (09:54)
[2018-05-20] MEDS: PANTOPRAZOLE 40 MG IV IVPush SCH ×2 (09:54→20:50)
[2018-05-20] MEDS: SODIUM CHLORIDE FLUSH 10ML SYR IVF SCH ×2 (09:55→20:51)
[2018-05-20] MEDS: D5%-0.45% NACL 1,000 ML IV SCH (11:25)
[2018-05-20] MEDS: ERTAPENEM 1 GM in SODIUM CHLORIDE 0.9% 50 ML IV SCH (15:42)
[2018-05-20 15:44] VITALS: BP 114/79
[2018-05-20 19:49] VITALS: BP 104/67
[2018-05-20] MEDS: ATORVASTATIN 40 MG TABLET PO SCH (20:50)
[2018-05-21 01:33] VITALS: BP 107/67
[2018-05-21] MEDS: INSULIN LISPRO 100 UNITS/ML, PEN SQ-INSULIN SCH ×4 (07:00→20:37)
[2018-05-21 07:33] VITALS: BP 113/74
[2018-05-21] MEDS: SODIUM CHLORIDE FLUSH 10ML SYR IVF SCH ×2 (08:30→20:04)
[2018-05-21] MEDS: PANTOPRAZOLE 40 MG IV IVPush SCH ×2 (08:30→20:03)
[2018-05-21 08:32] VITALS: BP 101/63
[2018-05-21] MEDS: LISINOPRIL 5 MG TABLET PO SCH (08:32)
[2018-05-21] MEDS: ERTAPENEM 1 GM in SODIUM CHLORIDE 0.9% 50 ML IV SCH (13:40)
[2018-05-21 14:14] VITALS: BP 96/63
[2018-05-21 19:31] VITALS: BP 109/68
[2018-05-21] MEDS: ATORVASTATIN 40 MG TABLET PO SCH (20:03)
[2018-05-22 03:25] VITALS: BP 101/69
[2018-05-22 07:45] VITALS: BP 102/70
[2018-05-22] MEDS: SODIUM CHLORIDE FLUSH 10ML SYR IVF SCH ×2 (07:51→20:32)
[2018-05-22] MEDS: PANTOPRAZOLE 40 MG IV IVPush SCH ×2 (07:51→20:32)
[2018-05-22] MEDS: INSULIN LISPRO 100 UNITS/ML, PEN SQ-INSULIN SCH ×4 (07:51→20:41)
[2018-05-22] MEDS: LISINOPRIL 5 MG TABLET PO SCH (07:51)
[2018-05-22 08:37] VITALS: BP 99/65
[2018-05-22] MEDS: ERTAPENEM 1 GM in SODIUM CHLORIDE 0.9% 50 ML IV SCH (13:19)
[2018-05-22 14:36] VITALS: BP 92/58
[2018-05-22 19:59] VITALS: BP 93/60
[2018-05-22] MEDS: ATORVASTATIN 40 MG TABLET PO SCH (20:32)
[2018-05-23 02:41] VITALS: BP 107/67
[2018-05-23 07:53] VITALS: BP 105/68
[2018-05-23] MEDS: PANTOPRAZOLE 40 MG IV IVPush SCH ×2 (07:57→21:38)
[2018-05-23] MEDS: LISINOPRIL 5 MG TABLET PO SCH (07:57)
[2018-05-23] MEDS: INSULIN LISPRO 100 UNITS/ML, PEN SQ-INSULIN SCH ×4 (07:58→21:49)
[2018-05-23] MEDS: SODIUM CHLORIDE FLUSH 10ML SYR IVF SCH ×2 (07:59→21:39)
[2018-05-23 08:17] VITALS: BP 118/80
[2018-05-23 13:34] VITALS: BP 97/63
[2018-05-23] MEDS: ERTAPENEM 1 GM in SODIUM CHLORIDE 0.9% 50 ML IV SCH (13:38)
[2018-05-23 20:00] VITALS: BP 93/57
[2018-05-23] MEDS: ATORVASTATIN 40 MG TABLET PO SCH (21:38)
[2018-05-24 02:36] VITALS: BP 108/66
[2018-05-24 05:24] LABS: BASOPHILS # (AUTO) 0.08 x10^3/uL (0-0.1); BASOPHILS % (AUTO) 1 % (0-1); EOSINOPHILS # (AUTO) 0.12 x10^3/uL (0-0.4); EOSINOPHILS % (AUTO) 1 % (1-7); LYMPHOCYTES # (AUTO) 2.84 x10^3/uL (1-3.4); LYMPHOCYTES % (AUTO) 33 % (22-44); MD NO; MEAN CORPUSCULAR HEMOGLOBIN 28.1 pg (27.5-34.5); MEAN CORPUSCULAR HGB CONC 33.3 g/dL (33.2-36.2); MEAN CORPUSCULAR VOLUME 84.2 fL (81-97); MEAN PLATELET VOLUME 6.8 fL (7.4-10.4); MONOCYTES # (AUTO) 0.57 x10^3/uL (0.2-0.8); MONOCYTES % (AUTO) 7 % (2-9); NEUTROPHILS # (AUTO) 5.02 x10^3/uL (1.8-6.8); NEUTROPHILS % (AUTO) 58 % (42-75); PLATELET COUNT 265 x10^3/uL (130-400); RED BLOOD COUNT 4.51 x10^6/uL (4.38-5.82)
[2018-05-24 05:25] LABS: HCT (SEDRATE) 37.7 % (39.2-51.8)
[2018-05-24 05:36] LABS: ALBUMIN 2.5 g/dL (3.4-5.0); CHLORIDE 108 mmol/L (98-107)
[2018-05-24 05:42] LABS: ALANINE AMINOTRANSFERASE 31 U/L (12-78); ALKALINE PHOSPHATASE 80 U/L (45-117); ANION GAP 4 mmol/L (5-15); BILIRUBIN,TOTAL 0.3 mg/dL (0.2-1.0); C-REACTIVE PROTEIN, QUANT 0.53 mg/dL (0.02-0.49); CREATININE 0.91 mg/dL (0.7-1.3); TOTAL PROTEIN 7.3 g/dL (6.4-8.2)
[2018-05-24 06:59] VITALS: BP 90/53
[2018-05-24] MEDS: INSULIN LISPRO 100 UNITS/ML, PEN SQ-INSULIN SCH ×4 (07:00→21:16)
[2018-05-24] MEDS: PANTOPRAZOLE 40 MG IV IVPush SCH ×2 (10:46→20:51)
[2018-05-24] MEDS: SODIUM CHLORIDE FLUSH 10ML SYR IVF SCH ×2 (10:47→20:51)
[2018-05-24] MEDS: LISINOPRIL 5 MG TABLET PO SCH (10:47)
[2018-05-24 10:51] VITALS: BP 108/72
[2018-05-24] MEDS: ERTAPENEM 1 GM in SODIUM CHLORIDE 0.9% 50 ML IV SCH (13:04)
[2018-05-24 13:32] VITALS: BP 99/63
[2018-05-24 19:58] VITALS: BP 98/60
[2018-05-24] MEDS: ATORVASTATIN 40 MG TABLET PO SCH (20:50)
[2018-05-25 02:14] VITALS: BP 97/53
[2018-05-25 07:59] VITALS: BP 101/63
[2018-05-25] MEDS: PANTOPRAZOLE 40 MG IV IVPush SCH (09:51)
[2018-05-25] MEDS: LISINOPRIL 5 MG TABLET PO SCH (09:51)
[2018-05-25] MEDS: INSULIN LISPRO 100 UNITS/ML, PEN SQ-INSULIN SCH ×3 (09:52→16:00)
[2018-05-25] MEDS: SODIUM CHLORIDE FLUSH 10ML SYR IVF SCH (09:52)
[2018-05-25 13:48] VITALS: BP 100/62
[2018-05-25] MEDS: ERTAPENEM 1 GM in SODIUM CHLORIDE 0.9% 50 ML IV SCH (14:34)
[2018-05-25] MEDS ORDERED: ERTA1VIA4 IV (15:00)
[2018-05-25] MEDS ORDERED: ATOR40TA78 PO (15:06)
== END 2018-05-25 16:30 | disposition home or self-care (01) | DRG 871 ==
LOC: ED 11:31 → EDIP 14:52 → 4NOR 16:42 → DCLOUNGE 05-25 16:10
PROVIDERS: ADMIT Hospitalist; ATTEND Hospitalist
PROC: 05HY33Z Insertion of Infusion Device into Upper Vein, Percutaneous Approach (ICD-10-PCS; principal; 2018-05-20)
PROC: B51N1ZA Fluoroscopy of Left Upper Extremity Veins using Low Osmolar Contrast, Guidance (ICD-10-PCS; 2018-05-20)
PROC: B54NZZA Ultrasonography of Left Upper Extremity Veins, Guidance (ICD-10-PCS; 2018-05-20)
DX: A41.9 Sepsis, unspecified organism (principal); K25.5 Chronic or unspecified gastric ulcer with perforation; K65.1 Peritoneal abscess; K86.3 Pseudocyst of pancreas; E44.0 Moderate protein-calorie malnutrition; D63.8 Anemia in other chronic diseases classified elsewhere; E11.65 Type 2 diabetes mellitus with hyperglycemia; E78.5 Hyperlipidemia, unspecified; I10 Essential (primary) hypertension; K80.70 Calculus of gallbladder and bile duct without cholecystitis without obstruction; Z80.0 Family history of malignant neoplasm of digestive organs; Z83.3 Family history of diabetes mellitus; Z87.891 Personal history of nicotine dependence; Z90.49 Acquired absence of other specified parts of digestive tract
CPT/HCPCS: 36415; 36569; 71045; 72158; 74177; 76937; 77001; 80048; 80053; 80076; 81001; 81003; 82040; 82947; 82962; 83036; 83605; 83690; 83735; 84100; 84145; 84443; 85025; 85610; 85651; 86140; 87040; 87147; 87181; 87338; 96361; 96365; 96366; 96375; A9585; G0378; J0295; J0696; J1335; J2543; J3370; Q9967; C1751; C9113; J1815; J2270; J7030; J7040; J7050

== ENCOUNTER → 2018-06-07 | Outpatient (CLI) | payer OTHER ==
[~2018-06-07] MED LIST changes: +ATOR40TA78 PO; +ERTA1VIA4 IV; +OMNIPAQUE 350 MG/ML, 100ML BOTTLE ONE
== END | disposition home or self-care (01) ==
LOC: RAD 12:43
PROVIDERS: ATTEND Internal Medicine Infectious Disease
DX: K22.8 Other specified diseases of esophagus (principal)
CPT/HCPCS: 74177; Q9967

== ENCOUNTER → 2019-11-01 | Outpatient (CLI) | payer OTHER ==
[~2019-11-01] MED LIST changes: -OMNIPAQUE 350 MG/ML, 100ML BOTTLE ONE
== END | disposition home or self-care (01) ==
LOC: CFH 15:13
PROVIDERS: ATTEND Registered Nurse
DX: J98.4 Other disorders of lung (principal); R06.2 Wheezing
CPT/HCPCS: 71250

== ENCOUNTER 2020-02-16 10:56 | Day surgery (SDC) | payer OTHER ==
[~2020-02-16] VITALS: Ht 160 cm; Wt 65.3 kg
[2020-02-16] MEDS ORDERED: GLIP10TA13 PO (11:34)
[2020-02-16] MEDS ORDERED: METF-688 PO (11:34)
[2020-02-16] MEDS ORDERED: LISI5TAB7 PO (11:34)
[2020-02-16] MEDS ORDERED: ATOR40TA78 PO (11:34)
[2020-02-16] MEDS ORDERED: LACTATED RINGERS 1,000 ML IV SCH (11:35)
[2020-02-16 11:37] VITALS: BP 118/77
[2020-02-16] MEDS ORDERED: CHLORHEXIDINE 15 ML UDC MM ONE (12:00)
[2020-02-16] MEDS ORDERED: PLEASE ENTER HEIGHT AND WEIGHT MC SCH (12:00)
[2020-02-16 12:15] LABS: ALBUMIN 3.5 g/dL (3.4-5.0); ANION GAP 5 mmol/L (5-15); CALCIUM 8.5 mg/dL (8.5-10.1); CHLORIDE 109 mmol/L (98-107)
[2020-02-16 12:19] LABS: ALANINE AMINOTRANSFERASE 19 U/L (12-78); ALKALINE PHOSPHATASE 98 U/L (45-117); BILIRUBIN,TOTAL 0.9 mg/dL (0.2-1.0); CREATININE 0.85 mg/dL (0.7-1.3); TOTAL PROTEIN 7.8 g/dL (6.4-8.2)
[2020-02-16] MEDS ORDERED: MIDAZOLAM 1 MG/ML, 2ML ONE (13:10)
[2020-02-16] MEDS ORDERED: FENTANYL PF 100 MCG/2ML ONE (13:11)
[2020-02-16] MEDS ORDERED: BUPIVACAINE/PF-EPI 0.5% 1:200K ONE (13:32)
[2020-02-16] MEDS ORDERED: PROMETHAZINE 25 MG/ML, 1ML IV PRN (14:00)
[2020-02-16] MEDS ORDERED: hydrALAzine 20 MG/ML, 1ML IV PRN (14:00)
[2020-02-16] MEDS ORDERED: HYDROmorphone 2 MG/ML, 1ML IVPush PRN (14:00)
[2020-02-16] MEDS ORDERED: OXYcodone 5 MG/5 ML ORAL.SOL UDC PO PRN (14:00)
[2020-02-16] MEDS ORDERED: MEPERIDINE/PF 25MG/0.5ML IVPush PRN (14:00)
[2020-02-16] MEDS ORDERED: ALBUTEROL SULFATE 2.5 MG/3 ML NPPB PRN (14:00)
[2020-02-16] MEDS ORDERED: DIAZEPAM 5 MG/ML, 2ML IVPush PRN (14:00)
[2020-02-16] MEDS ORDERED: FENTANYL PF 100 MCG/2ML IV PRN (14:00)
[2020-02-16] MEDS ORDERED: KETOROLAC 30 MG/1 ML IV PRN (14:00)
[2020-02-16] MEDS ORDERED: ACETAMINOPHEN 325 MG TABLET PO PRN (14:00)
[2020-02-16] MEDS ORDERED: LABETALOL 5MG/ML, 20ML IV PRN (14:00)
[2020-02-16] MEDS ORDERED: MEPERIDINE/PF 25MG/ML,1ML ONE (14:09)
[2020-02-16] MEDS ORDERED: ROCURONIUM 10MG/ML,5ML ONE (14:24)
[2020-02-16] MEDS ORDERED: GLYCOPYRROLATE 0.2MG/1ML, 5ML ONE (14:24)
[2020-02-16] MEDS ORDERED: ONDANSETRON 2MG/ML, 2ML ONE (14:24)
[2020-02-16] MEDS ORDERED: SUCCINYLCHOLINE 20 MG/ML, 10ML ONE (14:24)
[2020-02-16] MEDS ORDERED: PROPOFOL 10 MG/ML, 20ML ONE (14:24)
[2020-02-16] MEDS ORDERED: NEOSTIGMINE 1 MG/ML, 10ML ONE (14:24)
[2020-02-16] MEDS ORDERED: CEFAZOLIN 1,000 MG ONE (14:24)
[2020-02-16] MEDS ORDERED: DEXAMETHASONE 4 MG/ML, 1ML ONE (14:24)
[2020-02-16] MEDS ORDERED: KETOROLAC 30 MG/1 ML ONE (14:29)
[2020-02-16] MEDS ORDERED: ACETAMINOPHEN 650 MG/20.3 ML UDC ONE (14:29)
[2020-02-16] MEDS ORDERED: OXYcodone 5 MG/5 ML ORAL.SOL UDC ONE (14:29)
== END 2020-02-16 15:25 | disposition home or self-care (01) ==
LOC: OUT 10:56
PROVIDERS: ATTEND Surgery Vascular Surgery
DX: L02.212 Cutaneous abscess of back [any part, except buttock and flank] (principal); Z11.59 Encounter for screening for other viral diseases; E11.9 Type 2 diabetes mellitus without complications; I10 Essential (primary) hypertension; E78.5 Hyperlipidemia, unspecified; Z79.84 Long term (current) use of oral hypoglycemic drugs; Z90.49 Acquired absence of other specified parts of digestive tract; Z98.890 Other specified postprocedural states; Z79.899 Other long term (current) drug therapy; Z87.891 Personal history of nicotine dependence; Z82.49 Family history of ischemic heart disease and other diseases of the circulatory system; Z83.3 Family history of diabetes mellitus
CPT/HCPCS: 21931; 36415; 80053; 82962; 87070; 87075; 87077; 87102; 87186; 87205; 87635; 88305; 93005; J0330; J0690; J1100; J1885; J2175; J2250; J2405; J2704; J3010; J7120; J2710

== ENCOUNTER 2021-03-15 15:21 | Outpatient (CLI) | payer OTHER ==
[~2021-03-15 15:21] MED LIST changes: +GLIP10TA13 PO; -LISI-424 PO; +LISI-606 PO; +LISI5TAB7 PO; +METF-688 PO
== END 2021-03-15 23:59 | disposition home or self-care (01) ==
LOC: CFH 15:21
PROVIDERS: ATTEND Internal Medicine
DX: R91.8 Other nonspecific abnormal finding of lung field (principal)
CPT/HCPCS: 71250